=== PATIENT | female | born 1990 | race Caucasian/White ===

== ENCOUNTER 2016-07-06 18:29 | Emergency (ER) | payer MEDICARE, MEDICAID ==
[2016-07-06] MEDS ORDERED: ACETAMINOPHEN 325 MG TABLET PO ONE (18:39)
--- NOTE | 2016-07-06 18:39 | ER Document Report ---
ED Medical Screen (RME) - General Stated Complaint: TOOTH PAIN Notes: patient is a 25 year old female tooth broken while eating pizza dental kailey on top back left tooth taking motrin with relief no drainage, no swelling I have greeted and performed a rapid initial assessment of this patient. A comprehensive ED assessment and evaluation of the patient, analysis of test results and completion of the medical decision making process will be conducted by additional ED providers. - Related Data Allergies/Adverse Reactions: No Known Allergies Allergy (Unverified 07/06/16 18:38) Physical Exam - Vital signs Vitals: Temp Pulse Resp BP Pulse Ox 98.0 F 108 H 16 124/73 100 07/06/16 18:34 07/06/16 18:34 07/06/16 18:34 07/06/16 18:34 07/06/16 18:34 Course - Vital Signs Vital signs: Temp Pulse Resp BP Pulse Ox 98.0 F 108 H 16 124/73 100 07/06/16 18:34 07/06/16 18:34 07/06/16 18:34 07/06/16 18:34 07/06/16 18:34
--- NOTE | 2016-07-06 19:46 | ER Document Report ---
ED Oral Problem - General Chief Complaint: Toothache Stated Complaint: TOOTH PAIN Time seen by provider: 19:46 Mode of Arrival: Ambulatory Information source: Patient TRAVEL OUTSIDE OF THE U.S[place] IN LAST 30 DAYS: No - HPI Patient complains to provider of: Toothache Onset: Other - 3 days ago Quality of pain: Dull Severity: Moderate Context: Fractured tooth Associated symptoms: Dental decay, Toothache. denies: Chills, Cough, Decreased appetite, Drainage, Drooling, Earache, Facial pain, Fever, Headache, Jaw pain, Short of breath, Sweaty, Tongue swelling, Unable to swallow, White patches in mouth Notes: The patient states that she was eating a piece of pizza a few nights ago when a piece of her tooth broke off and she's had increasing right upper dental pain since that occurred. She recently moved here and does not have a local dentist. She denies any fevers. She denies any nausea vomiting diarrhea. She denies difficulty breathing or swallowing. No known allergies. States pain seems to be worse when she sits up and better when she is lying down. She denies any other complaints at this time. - Related Data Allergies/Adverse Reactions: No Known Allergies Allergy (Unverified 07/06/16 18:38) Past Medical History - Social History Smoking Status: Former Smoker Chew tobacco use (# tins/day): No Drug Abuse: None Family History: Reviewed & Not Pertinent Patient has suicidal ideation: No Patient has homicidal ideation: No Renal/ Medical History: Denies: Hx Peritoneal Dialysis Review of Systems - Review of Systems -: Yes All other systems reviewed and negative Physical Exam - Vital signs Vitals: Temp Pulse Resp BP Pulse Ox 98.0 F 108 H 16 124/73 100 07/06/16 18:34 07/06/16 18:34 07/06/16 18:34 07/06/16 18:34 07/06/16 18:34 Interpretation: Normal - General General appearance: Appears well, Alert - HEENT Head: Normocephalic, Atraumatic Eyes: Normal Conjunctiva: Normal Pupils: PERRL Ears: Normal External canal: Normal Tympanic membrane: Normal Mouth/Lips: Dental fracture - Tooth #15 no abscess, no swelling. Tenderness in this area. Mucous membranes: Normal Pharynx: Normal Neck: Normal. No: Meningismus - Respiratory Respiratory status: No respiratory distress Chest status: Nontender Breath sounds: Normal Chest palpation: Normal - Cardiovascular Rhythm: Regular Heart sounds: Normal auscultation Murmur: No - Extremities General upper extremity: Normal inspection, Nontender, Normal color, Normal ROM , Normal temperature General lower extremity: Normal inspection, Nontender, Normal color, Normal ROM , Normal temperature, Normal weight bearing. No: Annie's sign - Neurological Neuro grossly intact: Yes Cognition: Normal Orientation: AAOx4 Wojciech Coma Scale Eye Opening: Spontaneous Pullman Coma Scale Verbal: Oriented Pullman Coma Scale Motor: Obeys Commands Pullman Coma Scale Total: 15 Speech: Normal Motor strength normal: LUE, RUE, LLE, RLE Sensory: Normal - Psychological Associated symptoms: Normal affect, Normal mood - Skin Skin Temperature: Warm Skin Moisture: Dry Skin Color: Normal Course - Re-evaluation Re-evalutation: 07/06/16 20:27 Patient is nontoxic. Stable vitals. She started to have a fractured tooth to the left upper second molar. Since causing her pain. There is no sign of obvious infection. No block was performed in the ED with significant improvement of her pain. Patient will be discharged home with tramadol and Pen- Vee K. She was given a list of dentist to follow-up with. Follow-up sooner for increased pain, fever, swelling, difficult to breathing or swallowing, or any further concerns. The patient is noted to have elevated blood pressure during today's emergency department visit. The patient was informed of this finding. The patient was instructed that this may be related to pre-hypertension and requires further evaluation with a primary care provider. The patient has no hypertensive symptoms at this time. - Vital Signs Vital signs: Temp Pulse Resp BP Pulse Ox 98.0 F 108 H 16 124/73 100 07/06/16 18:34 07/06/16 18:34 07/06/16 20:00 07/06/16 18:34 07/06/16 18:34 Procedures - Additional Procedures dental block Notes: 07/06/16 20:24 Infra alveolar block performed to the left side using 2% lidocaine and 0.5% bupivacaine. One half mL was injected. The patient started having relief of pain immediately. The patient had no immediate complications. Discharge - Discharge Clinical Impression: Pain, dental Condition: Stable Disposition: HOME, SELF-CARE Instructions: [facility], Toothache ([facility]), Penicillin V K ([facility]) Additional Instructions: TOOTHACHE: Your pain is due to dental decay. The tooth must be repaired in order for you to feel better. You will, therefore, be referred to a dentist. We do not have dentists on the staff at [facility]. Severe swelling or drainage around a tooth usually means a dental abscess. This also requires evaluation and treatment by the dentist, but antibiotics may be prescribed while awaiting dental treatment. You should be rechecked immediately if you develop major swelling of the face, increasing pain, a lump in the jaw or gums, headache, difficulty swallowing, or fever. ORAL NARCOTIC MEDICATION: You have been given a prescription for pain control. This medication is a narcotic. It's best taken with food, as nausea can result if taken on an empty stomach. Don't operate machinery or drive within six hours of taking this medication. Do not combine this medicine with alcohol, or with any medication which can cause sedation (such as cold tablets or sleeping pills) unless you get permission from the physician. Narcotics tend to cause constipation. If possible, drink plenty of fluids and eat a diet high in fiber and fruits. Please be aware that prescription narcotics also have the potential for abuse. People become addicted to these medications because of the general sense of wellbeing that they induce. This feeling along with a significant reduction in tension, anxiety, and aggression provides a stimulating seductive quality to these drugs. Once your pain is under control, we encourage you to discard your unused narcotics. PENICILLIN V K: You have been given a prescription for Penicillin VK. Your physician has determined that this is the best antibiotic for your condition. Pen VK can be taken with meals, however more of the antibiotic gets into the bloodstream if it's taken on an empty stomach. Penicillin usually has no side effects. However, allergy to penicillins is common. If you have had an allergic reaction to any drug of the penicillin family, you should never take any other penicillin. Notify your doctor at once if you develop hives, itching, swelling, faintness, or shortness of breath. FOLLOW-UP CARE: You have been referred for follow-up care to the dentists listed below. Call the dentists office for an appointment as you were instructed or within the next two days. If you experience worsening or a significant change in your symptoms, notify the physician immediately or return to the Emergency Department at any time for re-evaluation. [facility] [address] [place], [place] Ak[place] mornings, by appointment [facility] [address] [place] [address] [facility] [place] [address] [address] [facility] [address] [facility] [address] [email or web address] [address] [place] [address] Sunday- 8:00am to 5:00 pm Will see patients from other [facility]. Charges based on income and family size and accepts Medicare, Medicaid, and Insurances Will pull molars [facility] Student [facility] [id number] Hours of Operation 8:00 am - 4:30 pm weekdays The following dental offices accept Medicaid: [facility] [place] [address] Dr[address] Parks Dr. Gonzalez Yariel Gonzalez Lutsavage, and [place] oral surgery Dr. Villa ([place]) Dr. Dueñas ([place]) [facility] Drs. Puente and Elder ([place]) Dr. Murcia ([place]) [facility] Dr. Leong ([place]) Drs. Freedman and Scholar ([place]) Medicaid Care Line Your blood pressure was elevated during today's visit. Have this rechecked with your doctor. Prescriptions: Penicillin V Potassium [Penicillin Vk 500 mg Tablet] 500 mg PO QID #28 tablet Tramadol HCl [Ultram] 50 mg PO TID PRN #10 tablet PRN Reason: Referrals: KIMBER ALSTON, LEAD LEVEL DESIGNER-C [Primary Care Provider] - Follow up as needed
[2016-07-06] MEDS ORDERED: LIDOCAINE 2% INJ (20 MG/ML) 20 ML MDV INJ ONE (19:54)
[2016-07-06] MEDS ORDERED: BUPIVACAINE HCL 0.5 % INJ/PF 30 ML SDV INJ ONE (19:54)
[2016-07-06 21:27] VITALS: BP 121/72
== END 2016-07-06 21:27 | disposition home or self-care (01) ==
LOC: ER 18:29
PROC: 3E0T3BZ Introduction of Anesthetic Agent into Peripheral Nerves and Plexi, Percutaneous Approach (ICD-10-PCS; principal; 2016-07-06)
DX: K08.9 Disorder of teeth and supporting structures, unspecified (principal)
CPT/HCPCS: 99282; 64402; A9270; J3490

== ENCOUNTER 2016-07-07 15:19 | Emergency (ER) | payer MEDICARE, MEDICAID ==
[2016-07-07 15:47] VITALS: BP 106/64
--- NOTE | 2016-07-07 16:06 | ER Document Report ---
ED Medical Screen (RME) - General Stated Complaint: TOOTH PAIN Notes: tooth pain patient came for information on dental referral and dental block, states tramadol isnt working I have greeted and performed a rapid initial assessment of this patient. A comprehensive ED assessment and evaluation of the patient, analysis of test results and completion of the medical decision making process will be conducted by additional ED providers. TRAVEL OUTSIDE OF THE U.S. IN LAST 30 DAYS: No - Related Data Allergies/Adverse Reactions: lamotrigine [From Lamictal] Allergy (Verified 07/07/16 16:04) Past Medical History Renal/ Medical History: Denies: Hx Peritoneal Dialysis Physical Exam - Vital signs Vitals: Temp Pulse Resp BP Pulse Ox 98.3 F 85 18 106/64 99 07/07/16 15:45 07/07/16 15:45 07/07/16 15:45 07/07/16 15:45 07/07/16 15:45 Course - Vital Signs Vital signs: Temp Pulse Resp BP Pulse Ox 98.3 F 85 18 106/64 99 07/07/16 15:45 07/07/16 15:45 07/07/16 15:45 07/07/16 15:45 07/07/16 15:45
[2016-07-07] MEDS ORDERED: KETOROLAC TROMETHAMINE 60 MG/2 ML SDV IM ONE (17:07)
--- NOTE | 2016-07-07 17:14 | ER Document Report ---
ED Oral Problem - General Chief Complaint: Toothache Stated Complaint: TOOTH PAIN Time seen by provider: 17:08 Mode of Arrival: Ambulatory TRAVEL OUTSIDE OF THE [place] IN LAST 30 DAYS: No - HPI Patient complains to provider of: Toothache - pt seen here yesterday for " broken tooth," was given dental block but said it only lasted for a short time. Was given tramadol which she says isn't working. She was given PCN which she continues to take - Related Data Allergies/Adverse Reactions: lamotrigine [From Lamictal] Allergy (Verified 07/07/16 16:04) Past Medical History - Social History Smoking Status: Current Every Day Smoker Cigarette use (# per day): Yes Chew tobacco use (# tins/day): No Smoking Education Provided: Yes Frequency of alcohol use: None Drug Abuse: None Family History: Reviewed & Not Pertinent Patient has suicidal ideation: No Patient has homicidal ideation: No Renal/ Medical History: Denies: Hx Peritoneal Dialysis Review of Systems - Review of Systems Constitutional: No symptoms reported EENT: See HPI, Dental problem Cardiovascular: No symptoms reported Respiratory: No symptoms reported Gastrointestinal: No symptoms reported -: Yes All other systems reviewed and negative Physical Exam - Vital signs Vitals: Temp Pulse Resp BP Pulse Ox 98.3 F 85 18 106/64 99 07/07/16 15:45 07/07/16 15:45 07/07/16 15:45 07/07/16 15:45 07/07/16 15:45 - General General appearance: Appears well In distress: None - HEENT Pharynx: Other - there is a broken L upper molar visible. It is tender to percussion. There is no gingival erythema Course - Re-evaluation Re-evalutation: 07/07/16 17:11 pt. felt better at time of d/c -- expressed desire to go home . Urged to recall dentists on list she was given yesterday. - Vital Signs Vital signs: Temp Pulse Resp BP Pulse Ox 98.3 F 85 18 106/64 99 07/07/16 15:45 07/07/16 15:45 07/07/16 15:45 07/07/16 15:45 07/07/16 15:45 Discharge - Discharge Clinical Impression: Toothache Condition: Stable Disposition: HOME, SELF-CARE Instructions: Toothache ([facility]) Additional Instructions: rest, take meds as prescribed, return if worse Prescriptions: Etodolac [Lodine] 400 mg PO BID #14 tablet
== END 2016-07-07 17:29 | disposition home or self-care (01) ==
LOC: ER 15:19
DX: K08.89 Other specified disorders of teeth and supporting structures (principal); F17.210 Nicotine dependence, cigarettes, uncomplicated; Z88.8 Allergy status to other drugs, medicaments and biological substances
CPT/HCPCS: 99283; 96372; J1885

== ENCOUNTER 2016-07-25 00:19 | Emergency (ER) | payer MEDICARE, MEDICAID ==
[2016-07-25] MEDS ORDERED: BUPIVACAINE HCL 0.75% INJ/PF (7.5 MG/1 ML) 10 ML SDV INJ ONE (02:00)
--- NOTE | 2016-07-25 02:07 | ER Document Report ---
ED Oral Problem - General Chief Complaint: Toothache Stated Complaint: JAW PAIN/BROKEN TOOTH Time seen by provider: 02:05 Mode of Arrival: Ambulatory Information source: Patient TRAVEL OUTSIDE OF THE [place] IN LAST 30 DAYS: No - HPI Patient complains to provider of: Toothache Onset: Other - 2-3 weeks Onset: Gradual Quality of pain: Achy Severity: Moderate Pain Level: 4 Context: Fractured tooth Associated symptoms: None Relieved by: Nothing Similar symptoms previously: Yes Recently seen / treated by doctor/dentist: Yes Notes: Patient is a 25-year-old female who presents to the emergency room complaining of dental pain related to a fractured molar that's been going on for the past 2- 3 weeks, she's actually been seen in this emergency room on 2 previous occasions , she states on the first occasion she received a numbing injection which actually gave her significant relief, on the second occasion she was given a prescription for pain medication as well as antibiotics, which does not actually seem to be helping her symptoms, she also followed up with her primary care provider and has been unable to obtain a dental appointment due to insurance and financial issues, she denies any drainage, no fevers, no new injury - Related Data Allergies/Adverse Reactions: lamotrigine [From Lamictal] Allergy (Verified 07/25/16 00:54) Past Medical History - General Information source: Patient - Social History Smoking Status: Current Every Day Smoker Chew tobacco use (# tins/day): No Frequency of alcohol use: Occasional Drug Abuse: None Family History: Reviewed & Not Pertinent Patient has suicidal ideation: No Patient has homicidal ideation: No Renal/ Medical History: Denies: Hx Peritoneal Dialysis - Immunizations Hx Diphtheria, Pertussis, Tetanus Vaccination: Yes Review of Systems - Review of Systems Constitutional: No symptoms reported EENT: Dental problem Cardiovascular: No symptoms reported Respiratory: No symptoms reported Gastrointestinal: No symptoms reported Genitourinary: No symptoms reported Female Genitourinary: No symptoms reported Musculoskeletal: No symptoms reported Skin: No symptoms reported Hematologic/Lymphatic: No symptoms reported Neurological/Psychological: No symptoms reported -: Yes All other systems reviewed and negative Physical Exam - Vital signs Vitals: Temp Pulse Resp BP Pulse Ox 97.9 F 94 18 135/98 H 100 07/25/16 00:48 07/25/16 00:48 07/25/16 00:48 07/25/16 00:48 07/25/16 00:48 - Notes Notes: - General General appearance: Appears well, Alert In distress: None - HEENT Head: Normocephalic, Atraumatic Eyes: Normal Conjunctiva: Normal Extraocular movements intact: Yes Eyelashes: Normal Pupils: PERRL - Respiratory Respiratory status: No respiratory distress - Cardiovascular Rhythm: Regular - Abdominal Inspection: Normal - Back Back: Normal - Extremities General upper extremity: Normal inspection General lower extremity: Normal inspection - Neurological Neuro grossly intact: Yes Orientation: AAOx4 Wojciech Coma Scale Eye Opening: Spontaneous Wojciech Coma Scale Verbal: Oriented Wojciech Coma Scale Motor: Obeys Commands Wojciech Coma Scale Total: 15 - Psychological Associated symptoms: Normal affect, Normal mood - Skin Skin Temperature: Warm Skin Moisture: Dry Skin Color: Normal - HEENT Mouth/Lips: Dental fracture Mucous membranes: Normal Teeth diagram: 1 - Dental fracture, mild surrounding erythema and swelling Course - Re-evaluation Re-evalutation: 07/25/16 02:12 Patient with dental pain, requested a dental block be performed, LONNY Baldwin perform dental block, patient reported feeling relief, was provided with pain medication and information for follow-up with low-cost dental clinics, advised to return if symptoms worsen, patient acknowledges understanding and agreement with this plan - Vital Signs Vital signs: Temp Pulse Resp BP Pulse Ox 97.9 F 94 18 135/98 H 100 07/25/16 00:48 07/25/16 00:48 07/25/16 00:48 07/25/16 00:48 07/25/16 00:48 Discharge - Discharge Clinical Impression: Fractured tooth Qualifiers: Encounter type: subsequent encounter Fracture type: closed Fracture healing: with delayed healing Qualified Code(s): S02.5XXG - Fracture of tooth (traumatic) , subsequent encounter for fracture with delayed healing Condition: Stable Disposition: HOME, SELF-CARE Instructions: [facility], Oral Narcotic Medication ([facility]), Toothache ([facility]) Additional Instructions: Follow-up with a dentist within the next week. Return to the emergency room immediately if symptoms worsen or any additional concerns. Prescriptions: Oxycodone HCl/Acetaminophen [Percocet 5-325 mg Tablet] 1 - 2 tab PO ASDIR PRN # 15 tablet PRN Reason:
[2016-07-25 03:35] VITALS: BP 119/78
== END 2016-07-25 02:18 | disposition home or self-care (01) ==
LOC: ER 00:19
PROC: 3E0T3BZ Introduction of Anesthetic Agent into Peripheral Nerves and Plexi, Percutaneous Approach (ICD-10-PCS; principal; 2016-07-25)
DX: S02.5XXG Fracture of tooth (traumatic), subsequent encounter for fracture with delayed healing (principal); R68.84 Jaw pain; F17.200 Nicotine dependence, unspecified, uncomplicated; X58.XXXD Exposure to other specified factors, subsequent encounter
CPT/HCPCS: 99282; 64400; J3490

== ENCOUNTER 2016-09-11 18:12 | Emergency (ER) | payer MEDICARE, MEDICAID ==
--- NOTE | 2016-09-11 18:55 | ER Document Report ---
ED Medical Screen (RME) - General Chief Complaint: Pelvic Pain Stated Complaint: PELVIC PAIN Notes: This 25-year-old female patient comes emergency room with one-week history of pelvic pain. 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 She has known about this for one year and is not been able to get the conization biopsy for various reasons. She reports being seen for UTI 2-3 ago when she was concerned about STD exposure. She reports the STD testing was negative, she was put on antibiotic for the urinary tract infection. UTI symptoms improved but she developed diarrhea and has continued to have diarrhea since then. She also has 7 days of brown vaginal discharge or bleeding. She is concerned about . Her last Depo shot was in March 2016. I have greeted and performed a rapid initial assessment of this patient. A comprehensive ED assessment and evaluation of the patient, analysis of test results and completion of the medical decision making process will be conducted by additional ED providers. TRAVEL OUTSIDE OF THE [place] IN LAST 30 DAYS: No - Related Data Allergies/Adverse Reactions: lamotrigine [From Lamictal] Allergy (Verified 07/25/16 00:54) Past Medical History Renal/ Medical History: Denies: Hx Peritoneal Dialysis - Immunizations Hx Diphtheria, Pertussis, Tetanus Vaccination: Yes Physical Exam - Vital signs Vitals: Temp Pulse Resp BP Pulse Ox 98.5 F 71 18 122/80 99 09/11/16 18:41 09/11/16 18:41 09/11/16 18:41 09/11/16 18:41 09/11/16 18:41 Course - Vital Signs Vital signs: Temp Pulse Resp BP Pulse Ox 98.5 F 71 18 122/80 99 09/11/16 18:41 09/11/16 18:41 09/11/16 18:41 09/11/16 18:41 09/11/16 18:41
[2016-09-11 19:25] LABS: APPEARANCE,URINE SLIGHTLY-CLOUDY; BILIRUBIN,URINE NEGATIVE (NEGATIVE); GLUCOSE, URINE NEGATIVE (NEGATIVE); KETONES,URINE NEGATIVE (NEGATIVE); LEUKOCYTE ESTERASE,URINE NEGATIVE (NEGATIVE); NITRITE,URINE NEGATIVE (NEGATIVE); PROTEIN,URINE NEGATIVE (NEGATIVE); URINE SPECIFIC GRAVITY 1.011; UROBILINOGEN,URINE NEGATIVE mg/dL (<2.0)
[2016-09-11 19:33] LABS: ABSOLUTE LYMPHOCYTES (AUTO) 1.9 10^3/uL (0.5-4.7); ABSOLUTE MONOCYTES (AUTO) 0.3 10^3/uL (0.1-1.4); ABSOLUTE NEUT (AUTO) 2.8 10^3/uL (1.7-8.2); BASOPHILS % (AUTO) 0.5 % (0-2); EOSINOPHILS % (AUTO) 0.7 % (0-6); HEMATOCRIT 38.9 % (36.0-47.0); HEMOGLOBIN 13.3 g/dL (12.0-15.5); LYMPHOCYTES % (AUTO) 37.9 % (13-45); MEAN CORPUSCULAR HGB CONC 34.1 g/dL (32.0-36.0); MEAN CORPUSCULAR VOLUME 85 fl (80-97); MONOCYTES % (AUTO) 5.1 % (3-13); RED BLOOD COUNT 4.58 10^6/uL (3.72-5.28); RED CELL DISTRIBUTION WIDTH 13.5 % (11.5-14.0); SEGMENTED NEUTROPHILS % (AUTO) 55.8 % (42-78); WHITE BLOOD COUNT 5.1 10^3/uL (4.0-10.5)
[2016-09-11 19:42] LABS: ALANINE AMINOTRANSFERASE 27 U/L (9-52); ALBUMIN 4.9 g/dL (3.5-5.0); ALKALINE PHOSPHATASE 48 U/L (38-126); ANION GAP 13 (5-19); ASPARTATE AMINO TRANSFERASE 21 U/L (14-36); BILIRUBIN,DIRECT 0.2 mg/dL (0.0-0.4); BILIRUBIN,TOTAL 0.3 mg/dL (0.2-1.3); BLOOD UREA NITROGEN 8 mg/dL (7-20); CALCIUM 10.3 mg/dL (8.4-10.2); CARBON DIOXIDE 26 mmol/L (22-30); CHLORIDE 105 mmol/L (98-107); CREATININE RESULT 0.61 mg/dL (0.52-1.25); GLUCOSE 95 mg/dL (75-110); POTASSIUM 4.6 mmol/L (3.6-5.0); SODIUM 143.8 mmol/L (137-145); TOTAL PROTEIN 7.6 g/dL (6.3-8.2)
[2016-09-11] MEDS ORDERED: DICYCLOMINE HCL 20 MG TABLET PO ONE (22:14)
[2016-09-11] MEDS ORDERED: ONDANSETRON 4 MG TAB.RAPDIS PO ONE (22:14)
--- NOTE | 2016-09-11 22:20 | ER Document Report ---
ED General - General Chief Complaint: Pelvic Pain Stated Complaint: PELVIC PAIN Notes: Patient is a pleasant 25-year-old female presents with multiple complaints. First complaint is that she has had irregular vaginal bleeding now for several months. She was placed on a Depo shot in March. She said the Depo shot made her feel miserable. She saw her coding manager at [facility] last week. She had a pelvic exam which was negative for sexually transmitted disease. She did have a UTI and was placed on antibiotics. She started diarrhea shortly after starting antibiotics. She stopped taking antibiotics because of diarrhea. Diarrhea is still occurring. She's had no fevers. She's had some nausea but no vomiting. She does complain of some weight loss since receiving the depot shot. She is scheduled for an ultrasound this Sunday and a follow-up appointment with her coding manager. TRAVEL OUTSIDE OF THE [place] IN LAST 30 DAYS: No - Related Data Allergies/Adverse Reactions: lamotrigine [From Lamictal] Allergy (Verified 07/25/16 00:54) Past Medical History - Social History Smoking Status: Current Every Day Smoker Frequency of alcohol use: None Drug Abuse: None Family History: Reviewed & Not Pertinent Patient has suicidal ideation: No Patient has homicidal ideation: No Renal/ Medical History: Denies: Hx Peritoneal Dialysis - Immunizations Hx Diphtheria, Pertussis, Tetanus Vaccination: Yes Review of Systems - Review of Systems Notes: My Normal Review Basic REVIEW OF SYSTEMS: CONSTITUTIONAL : Denies fever, chills, or sweats. Denies recent illness. RESPIRATORY: Denies cough, cold, or chest congestion. Denies shortness of breath, difficulty breathing, or wheezing. GASTROINTESTINAL: Suprapubic abdominal pain. Denies nausea, vomiting, or diarrhea. Denies constipation. Last BM: GENITOURINARY: Denies difficulty urinating, painful urination, burning, frequency, or blood in urine. FEMALE GENITOURINARY: Irregular vaginal bleeding. MUSCULOSKELETAL: Denies neck or back pain or joint pain or swelling. SKIN: Denies rash or skin lesions. NEUROLOGICAL: Denies altered mental status or loss of consciousness. Denies headache. Denies weakness or paralysis or loss of use of either side. Denies problems with gait or speech. Denies sensory or motor loss. ALL OTHER SYSTEMS REVIEWED AND NEGATIVE. Physical Exam - Vital signs Vitals: Temp Pulse Resp BP Pulse Ox 98.5 F 71 18 122/80 99 09/11/16 18:41 09/11/16 18:41 09/11/16 18:41 09/11/16 18:41 09/11/16 18:41 - Notes Notes: General Appearance: Well nourished, alert, cooperative, no acute distress, no obvious discomfort. Vitals: reviewed, See vital signs table. Head: no swelling or tenderness to the head Eyes: PERRL, EOMI, Conjuctiva clear Mouth: No decreasd moisture Neck: Supple, no neck tenderness, Lungs: No wheezing, No rales, No rhonci, No accessory muscle use, good air exchange bilaterally. Heart: Normal rate, Regular rythm, No murmur, no rub Abdomen: Normal BS, soft, No rigidity, mild suprapubic abdominal tenderness to palpation, No guarding, no rebound, no abdominal masses, no organomegaly Extremities: strength 5/5 in all extremities, good pulses in all extremities, no swelling or tenderness in the extremities, no edema. Skin: warm, dry, appropriate color, no rash Neuro: speech clear, oriented x 3, normal affect, responds appropriately to questions. Course - Vital Signs Vital signs: Temp Pulse Resp BP Pulse Ox 98.5 F 71 18 122/80 99 09/11/16 18:41 09/11/16 18:41 09/11/16 18:41 09/11/16 18:41 09/11/16 18:41 - Laboratory Result Diagrams: 09/11/16 19:00 09/11/16 19:00 Laboratory results interpreted by me: 09/11/16 19:00 Calcium 10.3 H - Transfer of Care Notes: 09/11/16 22:21 Patient's diary did not start until after beginning antibiotics. Her urinalysis is negative for her urinary tract infection is gone. Encourage her to continue to not taking Biaxin further. I'll have her start taking probiotics. Her C. difficile testing he was negative. She has no white blood cells in her stool. She's had irregular menstrual periods now for several months. She is scheduled for a ultrasound on once it which I think is appropriate next test. Her blood work is negative. She does not have a leukocytosis. She is not anemic. I did offer her repeat pelvic exam; however, the patient 6 monogamous and says that she has no concerns for any sexually transmitted diseases being that she is just has a negative. She wishes to wait to see her coding manager on Sunday. I think this is appropriate. We'll place her on Bentyl and Zofran. I encourage her to start taking probiotics. I encouraged return to ER immediately if she has worsening of her symptoms or feels unwell. Dictation of this chart was performed using voice recognition software; therefore, there may be some unintended grammatical errors. Discharge - Discharge Clinical Impression: Dysmenorrhea Diarrhea Qualifiers: Diarrhea type: unspecified type Qualified Code(s): R19.7 - Diarrhea, unspecified Condition: Good Disposition: HOME, SELF-CARE Additional Instructions: Please do not take any further antibiotics. Your urinalysis is now clear so need further antibiotics is needed at this time. Please buy probiotics from the pharmacy and start taking them. Please follow up with your coding manager on Sunday as scheduled for your ultrasound. Please return to the ER immediately if you develop worsening pain, fever,s recurrent vomiting, bloody stools.or feel that your are worsening. Prescriptions: Dicyclomine HCl [Bentyl 20 mg Tablet] 20 mg PO QID #40 tablet Ondansetron [Zofran Odt 4 mg Tablet] 1 tab PO Q4H PRN #15 tab.rapdis PRN Reason: For Nausea/Vomiting Forms: Return to Work
[2016-09-11 22:56] VITALS: BP 118/76
== END 2016-09-11 22:56 | disposition home or self-care (01) ==
LOC: ER 18:12
DX: N94.6 Dysmenorrhea, unspecified (principal); R19.7 Diarrhea, unspecified; R10.2 Pelvic and perineal pain; F17.200 Nicotine dependence, unspecified, uncomplicated
CPT/HCPCS: 99284; 36415; 87045; 89055; 87205; 84703; 85025; 80053; 81001; 87493 ×2; A9270 ×2; J3490; S0119

== ENCOUNTER 2016-11-06 14:57 | Emergency (ER) | payer MEDICARE, MEDICAID ==
[2016-11-06 15:36] VITALS: BP 116/77
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
[2016-11-06] MEDS ORDERED: ACETAMINOPHEN 325 MG TABLET PO ONE (16:43)
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
== END 2016-11-06 18:17 | disposition home or self-care (01) ==
LOC: ER 14:57
DX: S93.409A Sprain of unspecified ligament of unspecified ankle, initial encounter (principal); S80.02XA Contusion of left knee, initial encounter; S80.01XA Contusion of right knee, initial encounter; V49.40XA Driver injured in collision with unspecified motor vehicles in traffic accident, initial encounter; F11.20 Opioid dependence, uncomplicated
CPT/HCPCS: 99283; 73610; 73560; L4350; A9270

== ENCOUNTER 2017-02-20 08:29 | Emergency (ER) | payer MEDICARE, MEDICAID ==
[2017-02-20] MEDS ORDERED: ACETAMINOPHEN 325 MG TABLET PO ONE (09:29)
[2017-02-20 10:38] LABS: AMORPHOUS SEDIMENT,URINE TRACE /HPF; APPEARANCE,URINE TURBID; BILIRUBIN,URINE NEGATIVE (NEGATIVE); GLUCOSE, URINE NEGATIVE (NEGATIVE); KETONES,URINE NEGATIVE (NEGATIVE); LEUKOCYTE ESTERASE,URINE TRACE (NEGATIVE); NITRITE,URINE POSITIVE (NEGATIVE); PROTEIN,URINE 30 mg/dL (NEGATIVE); URINE SPECIFIC GRAVITY 1.016; UROBILINOGEN,URINE NEGATIVE mg/dL (<2.0)
[2017-02-20] MEDS ORDERED: LIDOCAINE 1% INJ-PF (10 MG/ML) 30 ML SDV INJ ONE (12:14)
[2017-02-20] MEDS ORDERED: CEFTRIAXONE INJ 250 MG VIAL IM ONE (12:14)
[2017-02-20 12:17] LABS: CHLAM PCR NOT DETECTED (NOT DETECT)
--- NOTE | 2017-02-20 12:20 | ER Document Report ---
ED GI/ - General Chief Complaint: Abdominal Pain Stated Complaint: STD EXPOSURE Time Seen by Provider: 02/20/17 09:42 Mode of Arrival: Ambulatory Information source: Patient Notes: Patient is a 26-year-old female who presents to the ER today for possible exposure to chlamydia, lower abdominal pain all across the lower abdomen, worse on the right side today. She admits to a mucus vaginal discharge. she denies any fevers but admits to chills and sweating. TRAVEL OUTSIDE OF THE [place] IN LAST 30 DAYS: No - Related Data Allergies/Adverse Reactions: lamotrigine [From Lamictal] Allergy (Verified 02/20/17 08:46) Past Medical History - General Information source: Patient - Social History Smoking Status: Current Every Day Smoker Chew tobacco use (# tins/day): No Frequency of alcohol use: Rare Drug Abuse: None Family History: Reviewed & Not Pertinent Patient has suicidal ideation: No Patient has homicidal ideation: No Renal/ Medical History: Denies: Hx Peritoneal Dialysis Psychiatric Medical History: Reports: Hx Depression Past Surgical History: Reports: Hx Oral Surgery - wisdom teeth - Immunizations Hx Diphtheria, Pertussis, Tetanus Vaccination: Yes Review of Systems - Review of Systems Constitutional: No symptoms reported EENT: No symptoms reported Cardiovascular: No symptoms reported Respiratory: No symptoms reported Gastrointestinal: No symptoms reported Genitourinary: No symptoms reported Female Genitourinary: See HPI Musculoskeletal: No symptoms reported Skin: No symptoms reported Hematologic/Lymphatic: No symptoms reported Neurological/Psychological: No symptoms reported Physical Exam - Vital signs Vitals: Temp Pulse Resp BP Pulse Ox 98.5 F 87 18 131/86 H 9 L 02/20/17 08:46 02/20/17 08:46 02/20/17 08:46 02/20/17 08:46 02/20/17 08:46 - Notes Notes: PHYSICAL EXAMINATION: GENERAL: Well-appearing and in no acute distress. HEAD: Atraumatic, normocephalic. EYES: Pupils equal round and reactive to light, extraocular movements intact, sclera anicteric, conjunctiva are normal. NECK: Normal range of motion, supple without lymphadenopathy LUNGS: CTAB and equal. No wheezes rales or rhonchi. HEART: Regular rate and rhythm without murmurs ABDOMEN: Soft, suprapubic, left lower quadrant, right lower quadrant tenderness. No guarding, no rebound BACK: no vertebral tenderness, normal ROM GI/: no CVA tenderness pelvic: no CMT, no adnexal tenderness, no bleeding or discharge EXTREMITIES: Normal range of motion, no pitting edema. No cyanosis. NEUROLOGICAL: Cranial nerves grossly intact. Normal sensory/motor exams. PSYCH: Normal mood, normal affect. SKIN: Warm, Dry, normal turgor, no rashes or lesions noted Course - Vital Signs Vital signs: Temp Pulse Resp BP Pulse Ox 98.5 F 87 18 131/86 H 9 L 02/20/17 08:46 02/20/17 08:46 02/20/17 08:46 02/20/17 08:46 02/20/17 08:46 - Laboratory Laboratory results interpreted by me: 02/20/17 10:18 Urine Protein 30 H Urine Nitrite POSITIVE H Ur Leukocyte Esterase TRACE H Procedures - Pelvic Exam Pelvic exam Time completed: 11:00 Cultures obtained: Yes Wet prep obtained: Yes Foreign body removed: No Bimanual exam performed: Yes - no CMT, no adnexal tenderness Witnessed by: MAYITO Anthonyplant accountant - Discharge Clinical Impression: Bacterial vaginitis UTI (urinary tract infection) Qualifiers: Urinary tract infection type: site unspecified Hematuria presence: without hematuria Qualified Code(s): N39.0 - Urinary tract infection, site not specified Condition: Stable Disposition: HOME, SELF-CARE Instructions: Chlamydia ([facility]), Urinary Tract Infection ([facility]), Vaginosis, Bacterial ([facility]) Additional Instructions: Return immediately for any new or worsening symptoms. Follow up with primary care provider, call tomorrow to make followup appointment. Prescriptions: Doxycycline Hyclate 100 mg PO BID #14 capsule Metronidazole [Flagyl 500 mg Tablet] 500 mg PO BID #28 tablet
[2017-02-20 12:59] VITALS: BP 98/41
== END 2017-02-20 13:10 | disposition home or self-care (01) ==
LOC: ER 08:29
DX: N39.0 Urinary tract infection, site not specified (principal); N76.0 Acute vaginitis; B96.89 Other specified bacterial agents as the cause of diseases classified elsewhere; F17.200 Nicotine dependence, unspecified, uncomplicated; Z20.2 Contact with and (suspected) exposure to infections with a predominantly sexual mode of transmission
CPT/HCPCS: 99283; 96372; 87210; 81025; 81001; 87491; 87591; A9270; J3490; J0696

== ENCOUNTER → 2018-04-25 | Outpatient (CLI) | payer OTHER ==
--- NOTE | 2018-04-25 11:33 | RADIOLOGY REPORT (SQ) ---
EXAM DESCRIPTION: CT ABD/PELVIS NO ORAL OR IV COMPLETED DATE/TIME: 04/25/2018 11:03 am REASON FOR STUDY: FLANK PAIN COMPARISON: None. TECHNIQUE: CT scan of the abdomen and pelvis performed without intravenous or oral contrast. Images reviewed with lung, soft tissue, and bone windows. Reconstructed coronal and sagittal MPR images revi ewed. All images stored on PACS. All CT scanners at this facility use dose modulation, iterative reconstruction, and/or weight based d osing when appropriate to reduce radiation dose to as low as reasonably achievable (ALARA). [facility]: Dose Right [facility]: CareDose [facility]: Dose Right [facility]: Teradose 4D [facility]: Smart [employer] Software RADIATION DOSE: CT Rad equipment meets quality standard of care and radiation dose reduction techniq ues were employed. CTDIvol: 4.4 mGy. DLP: 244 mGy-cm.mGy. LIMITATIONS: None. FINDINGS: LOWER CHEST: No significant findings. No nodules or infiltrates. NON-CONTRASTED LIVER, SPLEEN, ADRENALS: Evaluation limited by lack of IV contrast. No identified sign ificant masses. PANCREAS: No masses. No peripancreatic inflammatory changes. GALLBLADDER: No identified stones by CT criteria. No inflammatory changes to suggest cholecystitis. RIGHT KIDNEY AND URETER: There is the suggestion of mild caliectasis. There is a small nonobstructin g lower calyceal stone. There is no ureteral stone or obstruction. LEFT KIDNEY AND URETER: No suspicious masses. Assessment limited by lack of IV contrast. No signifi cant calcifications. No hydronephrosis or hydroureter. AORTA AND RETROPERITONEUM: No aneurysm. No retroperitoneal masses or adenopathy. BOWEL AND PERITONEAL CAVITY: Considerable stool is present in the colon. No mass. No inflammatory c hange. APPENDIX: Not identified. PELVIS, BLADDER, AND ABDOMINAL WALL:No abnormal masses. No free fluid. Bladder normal. BONES: No significant findings. OTHER: No other significant finding. IMPRESSION: 1. Possible constipation. 2. Mild caliectasis in the right kidney with a small nonobstructing intrarenal calculus. No uretera l stone or obstruction is present. COMMENT: Quality ID # [id number]: Final reports with documentation of one or more dose reduction techniques (e.g., Automated exposure control, adjustment of the mA and/or kV according to patient size, use of iterative reconstruction technique) TECHNICAL DOCUMENTATION: JOB ID: [id number] [employer]- All Rights Reserved Reading location - IP/workstation name: [email or web address]
== END ==
LOC: RAD 10:36
PROVIDERS: ATTEND Family Medicine
DX: R10.9 Unspecified abdominal pain (principal)
CPT/HCPCS: 74176